=== PATIENT | female | born 1975 | race Caucasian/White ===

== ENCOUNTER 2024-05-20 13:02 | Emergency (ER) | payer OTHER, BC, SELFPAY ==
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
[2024-05-20 13:17] VITALS: BP 155/102; PULSE 71; RESP 16; TEMP 36.8; O2SAT 100
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
[2024-05-20] MEDS: CYCLOBENZAPRINE HCL 10 MG TABLET PO (14:12)
[2024-05-20] MEDS: GABAPENTIN 300 MG CAPSULE PO (14:12)
[2024-05-20] MEDS: KETOROLAC 30 MG/ML VIAL (*BKC) IM (14:13)
[2024-05-20 17:06] VITALS: BP 130/86; PULSE 84; RESP 14; O2SAT 99
== END 2024-05-20 17:07 | disposition home or self-care (01) ==
PROVIDERS: Emergency Provider Emergency Medicine
DX: S39.012A Strain of muscle, fascia and tendon of lower back, initial encounter (principal); S06.0XAA Concussion with loss of consciousness status unknown, initial encounter; V43.52XA Car driver injured in collision with other type car in traffic accident, initial encounter
CPT/HCPCS: 70450; 71120; 72125; 72128; 72131; 96372; 99284; A9270; J1885